=== PATIENT | male | born 1960 | race Caucasian/White ===

== ENCOUNTER 2016-05-23 06:14 | Day surgery (SDC) | payer BC ==
--- NOTE | 2016-05-08 21:36 | HP ---
DATE OF ADMISSION: 05/08/2016 HISTORY OF PRESENT ILLNESS: This is the first orthopedic outpatient admission for surgery for this 56-year- old male who is being admitted with severe right shoulder pain. The patient has had a history of a continue increasing pain in the right shoulder to the point where it affects his daily activities. He ranks his pain scale on average of 4 to 6 and if he has activity it increases to 8 to 10. The patient has gone through workup, evaluation and treatment program, all which have failed. He is now being scheduled for orthopedic vieira for arthroscopy of the right shoulder with rotator cuff decompression and any indicated procedure. The procedures have been outlined to him. He understands the risk and complications involved and has consented to surgery. ALLERGIES: No known drug allergies. CURRENT MEDICATIONS: The patient is on metoprolol. Current medical problems include heart irregularity - A-Fib. He notes that he is being followed in [place]. He also has a history of high blood pressure. The patient denies being on any blood thinners at this point. PAST SURGICAL HISTORY: Negative. Bleeding history is negative. Blood clotting history is negative. SOCIAL HISTORY: The patient is a tobacco user, half pack per day. His alcohol use is occasional and rarely. PHYSICAL EXAMINATION: GENERAL: Today, reveals a well-developed, well-nourished, 56-year-old male in moderate distress. HEAD, EYES, EARS, NOSE, AND THROAT: Normocephalic. NECK: Supple. CHEST: Clear. COR: Irregular heart rate. ABDOMEN: Soft. : Intact. EXTREMITIES: Examination of the right shoulder reveals positive pain on direct pressure palpation of the AC joint with positive deformity noted. Active abduction to 140 degrees. Active forward flexion is 140 degrees. The patient has a Thorpe sign +3 for pain. Neer sign +3 for pain. Anchoring test +3 for pain. 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 There is also impingement of the rotator cuff with rotator cuff tendinosis, some fluid in the biceps tendon for biceps tendinitis and also identified a glenoid labral tear. ASSESSMENT: Right shoulder rotator cuff impingement with biceps tendinitis and glenoid labrum tear. PLAN: The patient is to undergo right shoulder arthroscopic surgery. The procedure has been outlined to him. He understands the procedure and has consented to it. MMODAL /[id number]
[~2016-05-23 06:14] MED LIST: EPINEPHrine 1:1000 1 MG/ML SDV ONE; Lidocaine 1% 4 ML ONE; Ropivacaine 0.5% 5 MG/ML 30 ML SDV ONE
--- NOTE | 2016-05-23 06:29 | PCM.PREANE ---
Preanesthetic Assessment - Physical Assessment Height: 1.78 m Weight: 98.974 kg - Allergies Allergies/Adverse Reactions: Allergies Allergy/AdvReac Type Severity Reaction Status Date / Time No Known Allergies Allergy Verified 05/22/16 16:08 PreAnesthesia Questionnaire HEENT History: Reports: Impaired vision Other HEENT History: Wears glasses Cardiovascular History: Reports: Afib Respiratory History: Reports: None Gastrointestinal History: Reports: GERD Genitourinary History: Reports: None FI[employer] H[employer] RESOURCES MANAGER History: Reports: None Musculoskeletal History: Reports: None Neurological History: Reports: None Psychiatric History: Reports: None Endocrine/Metabolic History: Reports: None Hematologic History: Reports: None Immunologic History: Reports: None Oncologic (Cancer) History: Reports: None Dermatologic History: Reports: None - Past Surgical History Head Surgeries/Procedures: Reports: None - SUBSTANCE USE Smoking Status *Q: Current Every Day Smoker Tobacco Use Within Last Twelve Months: Cigarettes Second Hand Smoke Exposure: No Days Per Week of Alcohol Use: 7 Number of Drinks Per Day: 5 Total Drinks Per Week: 35 Recreational Drug Use History: No - HOME MEDS Home Medications: Home Meds Metoprolol Tartrate [Lopressor] 50 mg PO Q8HR #90 tablet 01/15/15 [Rx] - CURRENT (IN HOUSE) MEDS Current Meds: Current Medications Lactated Ringer's (Ringers, Lactated) 1,000 mls @ 125 mls/hr IV ASDIRECTED AP Stop: 05/23/16 23:00 Lidocaine/Sodium Bicarbonate (Buffered Lidocaine 1% In Ns 8.4%) 0.25 ml IV ONETIME PRN PRN Reason: Prior to IV Start Stop: 05/23/16 18:00 Sodium Chloride (Saline Flush) 10 ml FLUSH ASDIRECTED PRN PRN Reason: Keep Vein Open Stop: 05/23/16 18:00 Discontinued Medications Epinephrine HCl (Adrenalin 1:1000) Confirm Administered Dose 1 mg .ROUTE .STK- MED ONE Stop: 05/23/16 05:56 Lidocaine HCl (Xylocaine-Mpf 1%) Confirm Administered Dose 4 mls @ as directed .ROUTE .STK-MED ONE Stop: 05/23/16 05:55 Ropivacaine (Naropin 0.5%) Confirm Administered Dose 30 ml .ROUTE .STK-MED ONE Stop: 05/23/16 05:56 Preanesthetic Assessment - ANESTHESIA/TRANSFUSION/FAMILY HX Anesthesia/Transfusion History: No Prior Anesthesia, No Prior Transfusion(s) Family History of Anesthesia Reaction: No Intubation History: Unknown - REVIEW OF SYSTEMS Constitutional: Reports: no symptoms ART THERAPIST: Reports: numbness (right arm noted.) Respiratory: Reports: no symptoms (1 pack per day times 30 years.) Cardiovascular: Reports: blood pressure problem, chest pain (last week chest pain noted with some diaphoresis noted.), palpitations GI: Reports: no symptoms (GERD (tums) taken.) Other: Reports: Neck Pain (bilaterally on each side noted.) - PHYSICAL ASSESSMENT HR: 51 O2 Sat by Pulse Oximetry: 97 RR: 16 BP: 135/85 Temp: 36.0 C Height: 1.8 m Weight: 101 kg NPO Status Date: 05/22/16 NPO Status Time: 21:00 ASA Class: 2 Mental Status: Alert & Oriented x3 Airway Class: Mallampati = 2 Dentition: Reports: Normal Dentition, Caries Thyro-Mental Finger Breadths: 3 Mouth Opening Finger Breadths: 3 ROM/Head Extension: Full Respiratory Status: lungs clear to auscultation bilaterally Cardiovascular Status: regular rate & rhythm, normal S1, S2, no murmur - LAB Values: MRSA screen. Labs reviewed and noted. - IMAGING/EKG Impressions: EK01/15/15, Atrial Fibrillation/ Right ventricular hypertrophy Echocardiogram: EF= 55%, report reviewed and noted. CXR: 2014 unremarkable/ Patient states EKG/CXR done last week 2016 in [place] with primary provider stating he is good to go. - ALLERGIES Allergies/Adverse Reactions: Allergies Allergy/AdvReac Type Severity Reaction Status Date / Time No Known Allergies Allergy Verified 05/22/16 16:08 - ANESTHESIA PLAN Preop Beta Jasen: Yes Beta Jaesn: Metoprolol Beta-Jasen Last Dose Date: 05/23/16 Beta-Jasen Last Dose Time: 05:15 Anesthesia Type Planned: General Anesthesia (with a right interscalene block under US guidance for post operative pain control, requested by Dr. Morel.) - ACKNOWLEDGEMENTS Pt an Appropriate Candidate for the Planned Anesthesia: Yes Alternatives and Risks of Anesthesia Discussed w Pt/Guardian: Yes Pt/Guardian Understands and Agrees with Anesthesia Plan: Yes
[2016-05-23] MEDS: Lactated Ringers 1,000 ML IV SCH ×2 (06:30→11:42)
[2016-05-23] MEDS ORDERED: Midazolam 1 MG/ML 2 ML SDV ONE (06:44)
[2016-05-23] MEDS ORDERED: Propofol 200 MG/20 ML SDV ONE (06:44)
[2016-05-23] MEDS ORDERED: fentaNYL 250 MCG/5 ML SDV ONE (06:44)
[2016-05-23] MEDS ORDERED: Lidocaine 1%/Sod Bicarbonate in NS 8.4% 1 ML Syringe IV PRN (07:00)
[2016-05-23] MEDS ORDERED: Sodium Chloride 0.9% 10 ML Syringe FLUSH PRN (07:00)
[2016-05-23] MEDS ORDERED: Ketorolac 30 MG/ML SDV IVPUSH PRN (07:31)
[2016-05-23] MEDS ORDERED: Cyclobenzaprine 10 MG Tab PO PRN (07:31)
[2016-05-23] MEDS ORDERED: HYDROmorphone 0.5 MG/0.5 ML Syringe IVPUSH PRN (07:31)
[2016-05-23] MEDS ORDERED: Acetaminophen/oxyCODONE 325-5 MG Tab PO PRN (07:31)
[2016-05-23] MEDS ORDERED: Ondansetron 4 MG/2 ML SDV IVPUSH PRN ×2 (07:31→10:30)
[2016-05-23] MEDS ORDERED: Morphine 15 MG Tab.ER PO ONE ×2 (07:45→11:00)
--- NOTE | 2016-05-23 08:21 | PCM.SN ---
- Free Text/Narrative Note: Date: 05/23/2016 Time Out: 0650 Start: 0650 Stop: 733 Diagnosis: Right shoulder Rotator Cuff Impingement/arthritis Surgical Procedure: Right shoulder video arthroscopy with rotator cuff decompression Actual procedure: Right interscalene block under US guidance for post operative pain control requested by Dr. Morel. Patient chart reviewed, allergies noted, risk/benefits of procedure discussed, consent obtained, and patient agrees to proceed with block. Monitors/alarms on/ O2 placed via nasal cannula. 0650: IV sedation of 2mg of versed, and 50 mcg of fentanyl given. Patient positioned supine with right neck area cleansed with 2 chloropreps. Sterile gloves, drape, and US sleeve noted. Mask/caps worn as well. Under US guidance right subclavian artery visualized and right brachial plexus noted and followed up to C6 level. Area localized with 1% lidocaine. 22 gauge 2 inch stimiplex needle advanced under US guidance with right forearm stimulation noted at 0.8mv, and 0.4mv. Stimulation ceased after injection of 2ml 's of normal saline. Incremental dosing with negative aspiration noted of ropivacaine 0.5% with 1:200 ,000 epinephrine, total volume of 30ml's. Patient tolerated procedure well. Block appears to be setting up nicely with decreased pain noted and decreased ability to move arm noted as well. Dr. Lion noted to be present to observe and assist with block placement.
[2016-05-23] MEDS: EPINEPHrine 1:1000 1 MG/ML 30 ML MDV ONE ×2 (09:10→09:11)
[2016-05-23] MEDS ORDERED: ePHEDrine/Normal Saline 25 MG/5 ML Syringe ONE (09:15)
[2016-05-23] MEDS ORDERED: ceFAZolin 1 GM Vial ONE (09:15)
[2016-05-23] MEDS ORDERED: Lactated Ringers 1,000 ML ONE (09:42)
[2016-05-23] MEDS ORDERED: EPINEPHrine 1:1000 1 MG/ML 30 ML MDV ONE (09:57)
[2016-05-23] MEDS ORDERED: Ondansetron 4 MG/2 ML SDV ONE (10:34)
[2016-05-23] MEDS: fentaNYL 100 MCG/2 ML SDV IVPUSH PRN ×4 (11:04→11:37)
[2016-05-23] MEDS: HYDROmorphone 0.5 MG/0.5 ML Syringe IVPUSH PRN ×2 (11:07→11:22)
--- NOTE | 2016-05-23 11:18 | PCM.POSTAN ---
POST ANESTHESIA ASSESSMENT - MENTAL STATUS Mental Status: alert, oriented - VITAL SIGNS Pulse Rate: 57 SaO2: 96 Resp Rate: 16 Blood Pressure: 107/75 Temperature: 36.2 C - RESPIRATORY Respiratory Status: respiratory rate WNL, airway patent, O2 saturation stable - CARDIOVASCULAR CV Status: blood pressure stable, slow pulse rate - GASTROINTESTINAL GI Status: no symptoms - PAIN Pain Score: 6 (pt receiving fentanyl and dilaudid) - POST OP HYDRATION Hydration Status: adequate & stable
--- NOTE | 2016-05-23 13:25 | PCM48HPAN ---
Post Anesthesia Note - EVALUATION WITHIN 48HRS OF ANESTHETIC Vital Signs in Normal Range: Yes Patient Participated in Evaluation: Yes Respiratory Function Stable: Yes Airway Patent: Yes Cardiovascular Function Stable: Yes Hydration Status Stable: Yes Pain Control Satisfactory: Yes (interscalene block doesn't appear to be working as well as hoped. see below) Nausea and Vomiting Control Satisfactory: Yes Mental Status Recovered: Yes - COMMENTS/OBSERVATIONS Free Text/Narrative:: pt requiring opiates for pain relief
[2016-05-23 13:51] VITALS: BP 129/81
--- NOTE | 2016-05-23 14:59 | OR ---
DATE OF OPERATION: 05/23/2016 SURGEON: Arben Morel MD PREOPERATIVE DIAGNOSIS: 1. Severe AC joint degenerative disease, right shoulder, with rotator cuff impingement. 2. Tear of glenoid labrum, right shoulder. 3. Partial tear of rotator cuff, right shoulder. POSTOPERATIVE DIAGNOSIS: 1. Severe AC joint degenerative disease, right shoulder, with rotator cuff impingement. 2. Tear of glenoid labrum, right shoulder. 3. Partial tear of rotator cuff, right shoulder. ANESTHESIA: General. OPERATION PERFORMED: 1. Arthroscopic debridement and removal of torn glenoid labrum and partial tearing rotator cuff. 2. Arthroscopic partial acromionectomy. 3. Arthroscopic distal clavicle resection. DESCRIPTION OF PROCEDURE: The patient was taken to the operating room in supine position and was placed under general anesthesia. The patient was then placed in a sitting-chair position for arthroscopic approach to the right shoulder. After proper positioning, the operation proceeded with prepping and draping of the shoulder by standard technique. Then, the operation began with a surgical incision being placed in the anatomical soft spot and the posterior portal area. Once that was completed, the arthroscope was introduced into the shoulder joint and using a Wissinger ana m, the anterior portal was then developed and then inspection of the joint found the subscapularis to be intact. There was significant fraying and degenerative tearing of the anterior glenoid labrum extending up underneath the area of the biceps tendon attachment. This was removed by standard technique with caitlyn and the ArthroCare unit. There was some early osteochondrosis of the glenoid itself and also the humeral head was fairly well intact. The biceps tendon was inspected in the joint area and then evaluated through the foraminal area. There was a fibrous band extending into the foraminal area coming off the biceps tendon, and this was removed. The rotator cuff was attached, but soft. There was just a moderate amount of tearing at the insertion site on the greater tuberosity, and this was shaved. Once that was satisfied, the remainder portion of the rotator cuff was intact, greater than 50%. The operation then proceeded with completion of the inspection of the inside joint. Then, a 2-0 Prolene was then used and passed through the insertion site of the rotator cuff into the joint to use as a marking suture in the subacromial space. Once that was in place, the joint was then thoroughly irrigated. Then, the operation proceeded with removal of the arthroscope, introduced into the subacromial space. Lateral portal was developed and then a bursectomy was carried out. Once the bursectomy was completed, the inspection was then carried out to the area where a marking suture was placed through the rotator cuff attachment area. This was probed with a nerve hook. It was soft, but intact. Once that was satisfied, the operation then proceeded with completion of the debridement of the subacromial space. The acromion was then approached with a partial acromionectomy being carried out using the shaver and bur. The AC joint had severe arthritis, significant ridging coming off the acromion and the clavicle. The operation was then completed proceeding with a distal clavicle resection and debridement of the joint itself. Once the debridement was carried out and the distal clavicle resection was completed, final inspection found the acromion surface to be nice and flat with good space for the range of motion of the rotator cuff underneath it. The good space was obtained in the AC joint, which was approximately 7 mm in space size. The operation proceeded with final irrigation the joint area. All bleeding was controlled with electrocautery. Then, the wounds were then closed with 2-0 Prolene. A standard large absorbent dressing was applied with a sling. The patient tolerated this procedure well and left the operating room in stable condition with standard dressings and sling. ESTIMATED BLOOD LOSS: MMODAL /[id number]
== END 2016-05-23 14:03 | disposition home or self-care (01) ==
LOC: JD.SDS 06:14
PROVIDERS: ATTEND Specialist
DX: M19.011 Primary osteoarthritis, right shoulder (principal); M75.41 Impingement syndrome of right shoulder; M75.101 Unspecified rotator cuff tear or rupture of right shoulder, not specified as traumatic; S43.491A Other sprain of right shoulder joint, initial encounter; Z79.899 Other long term (current) drug therapy; F17.210 Nicotine dependence, cigarettes, uncomplicated
CPT/HCPCS: 29822; 29824; 29826; A9270; J0171; J0690; J1170; J2250; J2405; J2795; J3010; J7050; J7120; 01630; 64415; J2704